=== PATIENT | male | born 1990 | race Caucasian/White ===

== ENCOUNTER 2017-06-02 20:31 | Emergency (ER) | payer OTHER, MEDICAID ==
[2017-06-02 20:38] VITALS: BP 140/77; PULSE 81; RESP 16; TEMP 98.4; O2SAT 97
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
== END 2017-06-02 21:53 | disposition home or self-care (01) ==
DX: S40.012A Contusion of left shoulder, initial encounter (principal); F17.200 Nicotine dependence, unspecified, uncomplicated; V49.40XA Driver injured in collision with unspecified motor vehicles in traffic accident, initial encounter; Y92.410 Unspecified street and highway as the place of occurrence of the external cause; Y99.8 Other external cause status; Y93.89 Activity, other specified